=== PATIENT | female | born 1955 | race Two or more races ===

== ENCOUNTER 2021-04-16 06:29 | Outpatient (CLI) | payer OTHER | END 2021-04-16 06:30 | disposition home or self-care (01) | LOC: LAB 06:29 | PROVIDERS: ATTEND Internal Medicine | DX: D64.89 Other specified anemias (principal); E11.9 Type 2 diabetes mellitus without complications; N39.0 Urinary tract infection, site not specified; E03.8 Other specified hypothyroidism; E78.00 Pure hypercholesterolemia, unspecified; Z12.11 Encounter for screening for malignant neoplasm of colon; R19.5 Other fecal abnormalities; R80.8 Other proteinuria; E55.9 Vitamin D deficiency, unspecified ==

== ENCOUNTER 2021-04-16 13:43 | Outpatient (CLI) | payer OTHER | END 2021-04-16 13:46 | disposition home or self-care (01) | LOC: MAMO-SONO 13:43 | PROVIDERS: ATTEND Internal Medicine | DX: R92.1 Mammographic calcification found on diagnostic imaging of breast (principal); M81.0 Age-related osteoporosis without current pathological fracture; Z12.31 Encounter for screening mammogram for malignant neoplasm of breast ==

== ENCOUNTER 2022-11-26 14:34 | Emergency (ER) | payer OTHER ==
[~2022-11-26] VITALS: Ht 160 cm; Wt 74.8 kg
[2022-11-26] MEDS ORDERED: TRIJARDY XR 5-1 EACH PO (14:51)
[2022-11-26] MEDS ORDERED: OZEMPIC0.25 MG/01 SQ (14:52)
== END 2022-11-26 20:43 | disposition home or self-care (01) ==
LOC: ER 14:34
DX: S80.02XA Contusion of left knee, initial encounter (principal); W17.89XA Other fall from one level to another, initial encounter; Y93.89 Activity, other specified; Y92.413 State road as the place of occurrence of the external cause; Z88.8 Allergy status to other drugs, medicaments and biological substances

== ENCOUNTER 2023-05-05 10:11 | Emergency (ER) | payer OTHER ==
[~2023-05-05] VITALS: Ht 160 cm; Wt 68.0 kg
[~2023-05-05 10:11] MED LIST: OZEMPIC0.25 MG/01 SQ; TRIJARDY XR 5-1 EACH PO
[2023-05-05] MEDS ORDERED: ATORVASTATIN CA40 MG PO (10:22)
== END 2023-05-05 14:38 | disposition home or self-care (01) ==
LOC: ER 10:11
DX: M54.50 Low back pain, unspecified (principal); K80.20 Calculus of gallbladder without cholecystitis without obstruction; M51.36 Other intervertebral disc degeneration, lumbar region; E11.9 Type 2 diabetes mellitus without complications; Z79.84 Long term (current) use of oral hypoglycemic drugs; I10 Essential (primary) hypertension
CPT/HCPCS: 72131; 93926; 93971; 96372; 99284; J1885

== ENCOUNTER 2023-05-12 11:06 | Outpatient (CLI) | payer OTHER ==
[~2023-05-12 11:06] MED LIST changes: +ATORVASTATIN CA40 MG PO
== END 2023-05-12 11:10 | disposition home or self-care (01) ==
LOC: MAMO-SONO 11:06
PROVIDERS: ATTEND Internal Medicine
DX: N64.4 Mastodynia (principal); R92.8 Other abnormal and inconclusive findings on diagnostic imaging of breast; Z12.31 Encounter for screening mammogram for malignant neoplasm of breast

== ENCOUNTER 2023-05-30 13:07 | Outpatient (CLI) | payer OTHER | END 2023-05-30 13:21 | disposition home or self-care (01) | LOC: MRI 13:07 | DX: M54.50 Low back pain, unspecified (principal) | CPT/HCPCS: 72148 ==

== ENCOUNTER 2023-07-21 14:14 | Outpatient (CLI) | payer OTHER | END 2023-07-21 14:18 | disposition home or self-care (01) | LOC: SONOGRAMA 14:14 | PROVIDERS: ATTEND Internal Medicine | DX: N18.2 Chronic kidney disease, stage 2 (mild) (principal) ==

== ENCOUNTER 2024-04-13 10:38 | Outpatient (CLI) | payer OTHER | END 2024-04-13 10:49 | disposition home or self-care (01) | LOC: MAMO-SONO 10:38 | PROVIDERS: ATTEND Internal Medicine | DX: N64.4 Mastodynia (principal); R92.8 Other abnormal and inconclusive findings on diagnostic imaging of breast; Z12.31 Encounter for screening mammogram for malignant neoplasm of breast ==

== ENCOUNTER 2024-04-27 13:31 | Outpatient (CLI) | payer OTHER | END 2024-04-27 13:52 | disposition home or self-care (01) | LOC: SONOGRAMA 13:31 | PROVIDERS: ATTEND Surgery | DX: N60.11 Diffuse cystic mastopathy of right breast (principal); N60.12 Diffuse cystic mastopathy of left breast ==

== ENCOUNTER 2025-03-11 08:38 | Outpatient (CLI) | payer OTHER | END 2025-03-11 08:45 | disposition home or self-care (01) | LOC: MRI 08:38 | PROVIDERS: ATTEND Physical Medicine & Rehabilitation | DX: M54.17 Radiculopathy, lumbosacral region (principal) | CPT/HCPCS: 72148 ==